=== PATIENT | male | born 1960 | race Caucasian/White ===

== ENCOUNTER 2017-09-19 20:33 | Emergency (ER) | payer BC ==
--- NOTE | 2017-09-19 20:59 | NUR ---
PATIENT BROUGHT IN BY RESCUE. UPON ARRIVAL PATIENT STATES "I FEEL BETTER. I DON'T WANT TO BE SEEN ANYMORE. I WILL SEE MY PMD IN THE MORNING." PATIENT LEFT WITH FAMILY MEMBERS WITH NO DISTRESS NOTED
--- NOTE | 2017-09-19 21:02 | NUR ---
PATIENT WAS TRIAGED
== END 2017-09-19 21:02 | disposition left against medical advice (07) ==
LOC: ER 20:35
DX: Z53.21 Procedure and treatment not carried out due to patient leaving prior to being seen by health care provider (principal)